=== PATIENT | female | born 1990 | race Caucasian/White ===

== ENCOUNTER 2016-10-12 22:28 | Emergency (ER) | payer OTHER ==
[~2016-10-12] VITALS: Ht 167.6 cm; Wt 68.0 kg
[2016-10-12 22:35] VITALS: BP 130/92
--- NOTE | 2016-10-12 23:17 | NUR ---
TO ER BED 7
--- NOTE | 2016-10-12 23:34 | NUR ---
PATIENT PRESENTS TO ED WITH ABD PAIN . PT STATES SHE HAS HAD CP X1DAY WITH SOB AND N/V. PT DENIES ANY MEDICAL HX. BOWEL SOUNDS ACTIVE X4 . DENIES DIARRHEA; SKIN IS PINK/WARM/DRY; AAOX4 WITH EVEN AND STEADY GAIT; LUNGS CLEAR BL; HR EVEN AND REGULAR; PT DENIES ANY FEVER OR COUGH AT THIS TIME; PATIENT STATES PAIN OF 7/10 IN HER CHEST AT THIS TIME; VSS; PATIENT POSITIONED FOR COMFORT; HOB ELEVATED; BEDRAILS UP X2; BED DOWN. ER MD MADE AWARE OF PT STATUS.
[2016-10-13] MEDS ORDERED: LIDOCAINE VISCOUS 2% 20 ML UDC PO ONE (00:30)
[2016-10-13] MEDS ORDERED: ALUMINUM HYD/MAG/SIMETHICONE 30 ML UDC PO ONE (00:30)
[2016-10-13] MEDS ORDERED: BELLADONNA/PHENOBARBITAL 5 ML ORASYR PO ONE (00:30)
[2016-10-13] MEDS ORDERED: ONDANSETRON 4 MG ODT PO ONE (00:30)
[2016-10-13 01:05] VITALS: BP 120/75
--- NOTE | 2016-10-13 01:06 | NUR ---
Patient discharged with v/s stable. Written and verbal after care instructions given and explained. Patient alert, oriented and verbalized understanding of instructions. Ambulatory with steady gait. All questions addressed prior to discharge. ID band removed. Patient advised to follow up with PMD. Rx of ZOFRAN, OMEPRAZOLE, AND MAALOX ADVANCED REGULAR STRENGTH given. Patient educated on indication of medication including possible reaction and side effects. Opportunity to ask questions provided and answered.
== END 2016-10-13 01:05 | disposition home or self-care (01) ==
LOC: MED 22:28
DX: K29.70 Gastritis, unspecified, without bleeding (principal); R06.02 Shortness of breath; R61 Generalized hyperhidrosis
CPT/HCPCS: 71010; 93005; 99284; Q0092; S0119

== ENCOUNTER 2017-02-26 14:33 | Emergency (ER) | payer OTHER ==
[~2017-02-26] VITALS: Ht 167.6 cm; Wt 68.0 kg
[2017-02-26 15:41] VITALS: BP 107/74
[2017-02-26 18:09] LABS: BASOPHILS # (AUTO) 0.6 K/uL (0.00-0.22); EOSINOPHILS # (AUTO) 0.3 K/uL (0-0.4); EOSINOPHILS % (AUTO) 2.5 % (0.0-4.0); HEMATOCRIT 43.5 % (36-48); HEMOGLOBIN 14.1 g/dL (12.0-16.0); LYMPHOCYTES # (AUTO) 3.3 K/uL (2.5-16.5); LYMPHOCYTES % (AUTO) 27.8 % (20.5-51.1); MEAN CORPUSCULAR HEMOGLOBIN 28 pg (27-31); MEAN CORPUSCULAR HGB CONC 33 g/dL (33-37); MEAN CORPUSCULAR VOLUME 85 fL (80-94); MONOCYTES # (AUTO) 0.4 K/uL (0.8-1.0); MONOCYTES % (AUTO) 3.7 % (1.7-9.3); NEUTROPHILS # (AUTO) 7.3 K/uL (1.8-7.7); PLATELET COUNT (AUTO) 370 K/uL (140-450); RED BLOOD CELL COUNT(AUTO) 5.12 MIL/uL (4.20-5.40); RED CELL DISTRIBUTION WIDTH 12.3 % (11.6-13.7); WHITE BLOOD COUNT (AUTO) 11.9 K/uL (4.8-10.8)
[2017-02-26 18:29] LABS: ANION GAP 11.2 (8-16); CALCIUM 8.4 mg/dL (8.5-10.1); CARBON DIOXIDE 27.6 mmol/L (21-32); POTASSIUM 3.8 mmol/L (3.5-5.1)
[2017-02-26 18:36] LABS: TOTAL BILIRUBIN 0.3 mg/dL (0.0-1.0); TOTAL PROTEIN, SERUM 8.2 g/dL (6.4-8.2)
--- NOTE | 2017-02-26 19:20 | NUR ---
Patient ambulated to bed 5. RN evaluating patient at bedside.
[2017-02-26 20:24] LABS: APPEARANCE,URINE CLEAR (CLEAR); BILIRUBIN,URINE NEGATIVE (NEGATIVE); BLOOD, URINE NEGATIVE (NEGATIVE); COLOR,URINE YELLOW (YELLOW); LEUKOCYTE ESTERASE ,URINE NEGATIVE (NEGATIVE); NITRITE, URINE NEGATIVE (NEGATIVE); PH,URINE 5.5 (5.0-9.0); PROTEIN,URINE NEGATIVE (NEGATIVE); UGLUCOSE NEGATIVE (NEGATIVE); UROBILINOGEN,URINE 0.2 EU/dL (0.2 - 1)
[2017-02-26] MEDS ORDERED: IBUPROFEN 600 MG TAB PO ONE (20:25)
[2017-02-26 21:00] VITALS: BP 106/77
--- NOTE | 2017-02-26 21:00 | NUR ---
Patient discharged with v/s stable. Written and verbal after care instructions given and explained. Patient verbalized understanding. Ambulatory with steady gait. All questions addressed prior to discharge. Advised to follow up with PMD.
== END 2017-02-26 21:00 | disposition home or self-care (01) ==
LOC: MED 14:33
DX: L72.3 Sebaceous cyst (principal); K76.0 Fatty (change of) liver, not elsewhere classified; Z88.0 Allergy status to penicillin
CPT/HCPCS: 36415; 76705; 80053; 81003; 81025; 82150; 83690; 84703; 85025; 99285

== ENCOUNTER 2017-03-09 10:07 | Emergency (ER) | payer OTHER ==
[~2017-03-09] VITALS: Ht 165.1 cm; Wt 72.1 kg
[2017-03-09 10:38] VITALS: BP 128/84
--- NOTE | 2017-03-09 10:53 | NUR ---
PATIENT PRESENTS TO ED WITH c/o jarrod breast pain x 3 wks---denies injury, no discoloration, no swelling,no lump palpated;PT STATES "she has tonsil stones"and she feels soreness on her throat; DENIES N/V/D; SKIN IS PINK/WARM/DRY; AAOX4 WITH EVEN AND STEADY GAIT; LUNGS CLEAR BL; HR EVEN AND REGULAR; PT DENIES ANY FEVER, CP, SOB, OR COUGH AT THIS TIME; PATIENT STATES PAIN OF 5/10 AT THIS TIME;PATIENT POSITIONED FOR COMFORT; HOB ELEVATED; BEDRAILS UP X2; BED DOWN. ER MD will be notified.
--- NOTE | 2017-03-09 11:16 | NUR ---
PT SITING ON BED;NO ACUTE DISTRESS NOTED;WILL CONTINUE TO MONITOR PT.
--- NOTE | 2017-03-09 11:50 | NUR ---
CHANG RODRIGUEZ AT BEDSIDE.
[2017-03-09 12:03] VITALS: BP 118/82
== END 2017-03-09 12:02 | disposition home or self-care (01) ==
LOC: MED 10:07
DX: N64.4 Mastodynia (principal); Z88.0 Allergy status to penicillin
CPT/HCPCS: 99283

== ENCOUNTER 2017-06-12 07:13 | Emergency (ER) | payer OTHER ==
[~2017-06-12] VITALS: Ht 167.6 cm; Wt 73.7 kg
[2017-06-12 07:23] VITALS: BP 135/79
--- NOTE | 2017-06-12 07:31 | NUR ---
Patient ambulated to bed 7. RN evaluating patient at bedside.
--- NOTE | 2017-06-12 07:39 | NUR ---
PATIENT PRESENTS TO ED WITH A BUMP ON THE BACK OF HER LEFT LEG . PT STATES SHE HAS HAD IT FOR ABOUT A YEAR BUT HAS BEEN FEELING TIGHTNESS AROUND IT RECENTLY. PATIENT REPORTS OF GAININING WEIGHT AFTER GIVING TO HER CHILD AND HAS BEEN WORKING OUT EXTENSIVELY . DENIES N/V/D; SKIN IS PINK/WARM/DRY; AAOX4 WITH EVEN AND STEADY GAIT; LUNGS CLEAR BL; HR EVEN AND REGULAR; PT DENIES ANY FEVER, CP, SOB, OR COUGH AT THIS TIME; PATIENT STATES PAIN OF 0/10 AT THIS TIME; VSS; PATIENT POSITIONED FOR COMFORT; HOB ELEVATED; BEDRAILS UP X2; BED DOWN. ER MD MADE AWARE OF PT STATUS.
--- NOTE | 2017-06-12 07:52 | NUR ---
US tech at bedside for exam.
--- NOTE | 2017-06-12 08:46 | NUR ---
Dr. Dobson re-evaluating patient at bedside.
[2017-06-12 08:51] VITALS: BP 135/79
== END 2017-06-12 08:53 | disposition home or self-care (01) ==
LOC: MED 07:13
DX: M25.562 Pain in left knee (principal); Z88.0 Allergy status to penicillin
CPT/HCPCS: 81002; 93971; 99284; Q0092

== ENCOUNTER 2021-07-16 16:11 | Emergency (ER) | payer OTHER ==
[~2021-07-16] VITALS: Ht 167.6 cm; Wt 79.4 kg
[2021-07-16 16:14] VITALS: BP 133/89
--- NOTE | 2021-07-16 16:18 | NUR ---
PT IS REQUESTING TO HAVE HER BOYFRIEND COME BACK WITH HER. BOYFRIEND DOES NOT HAVE PROOF OF VACCINE STATUS AT THIS TIME
--- NOTE | 2021-07-16 16:21 | NUR ---
Darren valero in ED - 07/16/21 at 1622 by [email or web address] PT REQUESTING TO SIT IN LOBBY WITH KRISTINA AT THIS TIME.
--- NOTE | 2021-07-16 16:23 | NUR ---
AMBULATED TO ER BED 4
--- NOTE | 2021-07-16 16:23 | NUR ---
PT AMBULATED TO ROOM 4. PT STATED "SHE WILL TRY TO STAY IN ROOM WITHOUT BOYFRIEND AT THIS TIME"
--- NOTE | 2021-07-16 16:28 | NUR ---
DR. CARLSON BEDSIDE EVALUATING PT
--- NOTE | 2021-07-16 16:32 | NUR ---
31 Y/O FEMALE C/O ANXIETY AND TREMORS X4DAYS. DENIES FEVER/CHILLS, DENIES N/V/D, DENIES SOB, DENIES CHEST PAIN. PT STATED "SHE STARTED TO EXERIENCE A VIBRATION IN HER R EAR THAT HAS SLOWLY GOTTEN WORSE." PT STATED SHE WANTS TO ENSURE NOTHING IS WRONG MEDICALLY WITH HER AT THIS TIME PMH: ANXIETY ALLERGIES: PCN
[2021-07-16] MEDS: LORazepam 1 MG TAB PO ONE (16:53)
--- NOTE | 2021-07-16 17:52 | NUR ---
Patient discharged with v/s stable. Written and verbal after care instructions given and explained. Patient verbalized understanding. Ambulatory with steady gait. All questions addressed prior to discharge. Advised to follow up with PMD. MENTAL HEALTH RESOURCE PACKET PROVIDED TO PATIENT
[2021-07-16 17:53] VITALS: BP 118/85
== END 2021-07-16 17:53 | disposition home or self-care (01) ==
LOC: MED 16:11
DX: R25.1 Tremor, unspecified (principal); R06.02 Shortness of breath; T50.5X5A Adverse effect of appetite depressants, initial encounter; T50.995A Adverse effect of other drugs, medicaments and biological substances, initial encounter; F41.9 Anxiety disorder, unspecified; Z88.0 Allergy status to penicillin; Y92.89 Other specified places as the place of occurrence of the external cause
CPT/HCPCS: 93005; 99283